=== PATIENT | male | born 1995 | race Caucasian/White ===

== ENCOUNTER 2018-07-16 19:12 | Emergency (ER) | payer OTHER ==
--- NOTE | 2018-07-16 19:19 | NUR ---
Pt placed in c-collar in triage. States he does not want to file a police report.
[2018-07-16 19:59] VITALS: BP 115/64
--- NOTE | 2018-07-16 20:54 | NUR ---
PT UP FOR RECHECK. PT NOT IN ROOM AT THIS TIME.
--- NOTE | 2018-07-16 21:17 | NUR ---
PT STILL NOT IN ROOM. SEARCH OF BATHROOMS AND HALLWAYS FOUND NO PT. INFORMED
== END 2018-07-16 21:19 | disposition left against medical advice (07) ==
LOC: ED 20:36
DX: S06.0X0A Concussion without loss of consciousness, initial encounter (principal); M54.2 Cervicalgia; Y04.8XXA Assault by other bodily force, initial encounter; Y93.89 Activity, other specified; Y92.009 Unspecified place in unspecified non-institutional (private) residence as the place of occurrence of the external cause; Y99.8 Other external cause status
CPT/HCPCS: 70450; 71045; 72125; 99284